=== PATIENT | female | born 1990 | race African-American/Black ===

== ENCOUNTER 2019-08-24 08:35 | Emergency (ER) | payer SELFPAY ==
[~2019-08-24] VITALS: Ht 165.1 cm; Wt 81.8 kg
[~2019-08-24 08:35] MED LIST: ACET325T9 PO; METO5TAB55 PO; POTA20TA4 PO
[2019-08-24] MEDS ORDERED: IV NORMAL SALINE 1000ML BAG 1,000 ML IV ONE (09:00)
[2019-08-24 09:39] LABS: BASO # 0.1 x10^3/uL (0.0-0.2); BASO % 1 % (0-3); EOS # 0.2 x10^3/uL (0.0-0.7); EOS % 4 % (0-3); HEMATOCRIT 41.8 % (36.0-47.0); HEMOGLOBIN 13.8 g/dL (12.0-15.5); LYMPH # 1.9 x10^3/uL (1.0-4.8); LYMPH % 40 % (24-48); MEAN CORPUSCULAR HEMOGLOBIN 25 pg (25-35); MEAN CORPUSCULAR HGB CONC 33 g/dL (31-37); MEAN CORPUSCULAR VOLUME 74 fL (79-100); MONO # 0.6 x10^3/uL (0.0-1.1); MONO % 12 % (0-9); NEUT # 2.1 x10^3/uL (1.8-7.7); NEUT % 44 % (31-73); PLATELET COUNT 198 x10^3/uL (140-400); RED BLOOD COUNT 5.63 x10^6/uL (3.50-5.40); RED CELL DISTRIBUTION WIDTH 17.1 % (11.5-14.5); WHITE BLOOD COUNT 4.8 x10^3/uL (4.0-11.0)
[2019-08-24 10:20] LABS: PREG TEST PT QUAL NEGATIVE (NEG)
[2019-08-24] MEDS ORDERED: IOHEXOL 300 MG/ML 100ML VIAL. IV ONE (10:30)
[2019-08-24 10:32] LABS: CALCIUM 8.2 mg/dL (8.5-10.1); CREATININE 0.6 mg/dL (0.6-1.0); POTASSIUM 3.9 mmol/L (3.5-5.1)
[2019-08-24 10:37] LABS: ALBUMIN 3.8 g/dL (3.4-5.0); ALBUMIN/GLOBULIN RATIO 0.9 (1.0-1.7); TOTAL BILIRUBIN 0.8 mg/dL (0.2-1.0)
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
[2019-08-24 11:30] VITALS: BP 96/68
[2019-08-24 11:32] LABS: BARBITURATES NEG (NEG); BENZODIAZEPINES NEG (NEG); CANNABINOIDS NEG (NEG); COCAINE NEG (NEG); METHADONE NEG (NEG); OPIATES NEG (NEG); PHENCYCLIDINE NEG (NEG)
[2019-08-24 11:36] LABS: AMPHETAMINE/METHAMPHETAMINE NEG (NEG)
[2019-08-24 12:09] LABS: PLT ESTIMATE ADEQUATE (ADEQUATE)
== END 2019-08-24 12:08 | disposition home or self-care (01) ==
LOC: ER 08:35
DX: S19.9XXA Unspecified injury of neck, initial encounter (principal); S09.90XA Unspecified injury of head, initial encounter; R51 Headache; Y08.89XA Assault by other specified means, initial encounter; Y93.89 Activity, other specified; Y92.89 Other specified places as the place of occurrence of the external cause; Y99.8 Other external cause status
CPT/HCPCS: 36415; 70450; 70486; 70498; 80053; 80307; 84703; 85025; 99285; J7030; Q9967

== ENCOUNTER 2020-01-09 16:17 | Emergency (ER) | payer SELFPAY ==
[~2020-01-09] VITALS: Ht 170.2 cm; Wt 72.2 kg
[2020-01-09] MEDS ORDERED: ONDANSETRON PF 4 MG/2 ML VIAL. IVP ONE (17:15)
[2020-01-09] MEDS ORDERED: MORPHINE SULFATE 10 MG/ML VIAL. IV ONE (17:15)
[2020-01-09 17:46] LABS: BILIRUBIN,URINE NEGATIVE (NEG); CLARITY,URINE CLEAR; COLOR,URINE YELLOW; NITRITE,URINE NEGATIVE (NEG); PROTEIN,URINE NEGATIVE (NEG-TRACE)
[2020-01-09 17:46] LABS: BASO # 0.1 x10^3/uL (0.0-0.2); BASO % 2 % (0-3); EOS # 0.1 x10^3/uL (0.0-0.7); EOS % 2 % (0-3); HEMATOCRIT 40.1 % (36.0-47.0); HEMOGLOBIN 12.8 g/dL (12.0-15.5); LYMPH # 1.4 x10^3/uL (1.0-4.8); LYMPH % 37 % (24-48); MEAN CORPUSCULAR HEMOGLOBIN 24 pg (25-35); MEAN CORPUSCULAR HGB CONC 32 g/dL (31-37); MEAN CORPUSCULAR VOLUME 77 fL (79-100); MONO # 0.4 x10^3/uL (0.0-1.1); MONO % 11 % (0-9); NEUT # 1.8 x10^3/uL (1.8-7.7); NEUT % 49 % (31-73); PLATELET COUNT 152 x10^3/uL (140-400); RED BLOOD COUNT 5.24 x10^6/uL (3.50-5.40); RED CELL DISTRIBUTION WIDTH 15.5 % (11.5-14.5); WHITE BLOOD COUNT 3.7 x10^3/uL (4.0-11.0)
[2020-01-09 17:58] LABS: BARBITURATES NEG (NEG); BENZODIAZEPINES NEG (NEG); CANNABINOIDS NEG (NEG); COCAINE NEG (NEG); METHADONE NEG (NEG); OPIATES NEG (NEG); PHENCYCLIDINE NEG (NEG)
[2020-01-09 18:02] LABS: AMPHETAMINE/METHAMPHETAMINE NEG (NEG)
[2020-01-09 18:04] LABS: BACTERIA,URINE FEW /HPF (0-FEW); RBC,URINE 0 /HPF (0-2)
--- NOTE | 2020-01-09 18:19 | RAD ---
Ultrasound of the umbilical region of the abdomen 01/09/2020 CLINICAL HISTORY: Bleeding around umbilicus. TECHNIQUE: A real-time ultrasound examination of the anterior abdominal wall in the region of the umbilicus was performed. Multiple images were obtained. FINDINGS: No solid mass or abnormal fluid collection is seen within the soft tissues surrounding the umbilicus. IMPRESSION: Negative study. Electronically signed by: Jerald Lerner MD (01/09/2020 6:16 PM) [id number]
--- NOTE | 2020-01-09 18:47 | PHYS DOC ---
Past Medical History Past Medical History: Hepatitis, Pancreatitis, Other Additional Past Medical Histor: HEP B Past Surgical History: Other Additional Past Surgical Histo: HAND Smoking Status: Current Some Day Smoker Alcohol Use: Heavy Drug Use: None General Adult EDM: Chief Complaint: ABDOMINAL PAIN HPI: HPI: Patient is a 29 year old female patient who presents to the ED today complaining of bleeding around her umbilicus that she noted this afternoon. Denies any injury. She states she has history of chronic abdominal pain since 2019 but this is nothing to do with the blood coming out of her umbilicus. Denies any fever, coughing, congestion, denies any chance she is . She appears intoxicated. Review of Systems: Review of Systems: Constitutional: Denies fever or chills. [] Eyes: Denies change in visual acuity. [] HENT: Denies nasal congestion or sore throat. [] Respiratory: Denies cough or shortness of breath. [] Cardiovascular: Denies chest pain or edema. [] GI: Reports bleeding from the umbilicus. Denies abdominal pain, nausea, vomiting, bloody stools or diarrhea. [] : Denies dysuria. [] Musculoskeletal: Denies back pain or joint pain. [] Integument: See abdomen Neurologic: Denies headache, focal weakness or sensory changes. [] Psychiatric: Denies depression or anxiety. [] Heart Score: Risk Factors: Risk Factors: DM, Current or recent (<one month) smoker, HTN, HLP, family history of CAD, obesity. Risk Scores: Score 0 - 3: 2.5% MACE over next 6 weeks - Discharge Home Score 4 - 6: 20.3% MACE over next 6 weeks - Admit for Clinical Observation Score 7 - 10: 72.7% MACE over next 6 weeks - Early Invasive Strategies Current Medications: Current Medications Medications (Trade) Dose Ordered Sig/[facility] Start Time Stop Time Status Last Admin Dose Admin Morphine Sulfate (Morphine Sulfate) 5 mg 1X ONCE 01/09/20 17:15 01/09/20 17:16 DC 01/09/20 17:53 5 MG Ondansetron HCl (Zofran) 4 mg 1X ONCE 01/09/20 17:15 01/09/20 17:16 DC 01/09/20 17:52 4 MG Allergies: Allergies: Allergies Coded Allergies Type Severity Reaction Last Updated Verified No Known Drug Allergies 01/12/19 No Physical Exam: PE: Constitutional: Well developed, well nourished, no acute distress, non-toxic appearance. [] HENT: Normocephalic, atraumatic, bilateral external ears normal, oropharynx moist, no oral exudates, nose normal. [] Eyes: PERRLA, EOMI, conjunctiva normal, no discharge. [] Neck: Normal range of motion, no tenderness, supple, no stridor. [] Cardiovascular:Heart rate regular rhythm, no murmur [] Lungs & Thorax: Bilateral breath sounds clear to auscultation [] Abdomen: Rounded abdomen, umbilicus was retracted, there is a superficial pimple size lesion that has opened up and is draining. Bowel sounds normal, soft, no tenderness, no masses, no pulsatile masses. [] Skin: Warm, dry, no erythema, no rash. [] Back: No tenderness, no CVA tenderness. [] Extremities: No tenderness, no cyanosis, no clubbing, ROM intact, no edema. [] Neurologic: Alert and oriented X 3, normal motor function, normal sensory function, no focal deficits noted. [] Psychologic: Affect normal, judgement normal, mood normal. [] Current Patient Data: Labs: Laboratory Tests Test 01/09/20 16:43 01/09/20 17:02 01/09/20 17:30 Urine Collection Type Unknown Urine Color Yellow Urine Clarity Clear Urine pH 6.0 (<5.0-8.0) Urine Specific [place] <=1.005 (1.000-1.030) Urine Protein Negative mg/dL (NEG-TRACE) Urine Glucose (UA) Negative mg/dL (NEG) Urine Ketones (Stick) Negative mg/dL (NEG) Urine Blood Negative (NEG) Urine Nitrite Negative (NEG) Urine Bilirubin Negative (NEG) Urine Urobilinogen Dipstick 1.0 mg/dL (0.2 mg/dL) Urine Leukocyte Esterase Negative (NEG) Urine RBC 0 /HPF (0-2) Urine WBC 5-10 /HPF (0-4) Urine Squamous Epithelial Cells Mod /LPF Urine Bacteria Few /HPF (0-FEW) Urine Opiates Screen Neg (NEG) Urine Methadone Screen Neg (NEG) Urine Barbiturates Neg (NEG) Urine Phencyclidine Screen Neg (NEG) Urine Amphetamine/Methamphetamine Neg (NEG) Urine Benzodiazepines Screen Neg (NEG) Urine Cocaine Screen Neg (NEG) Urine Cannabinoids Screen Neg (NEG) Urine Ethyl Alcohol Pos (NEG) POC Urine HCG, Qualitative Hcg negative (Negative) White Blood Count 3.7 x10^3/uL (4.0-11.0) L Red Blood Count 5.24 x10^6/uL (3.50-5.40) Hemoglobin 12.8 g/dL (12.0-15.5) Hematocrit 40.1 % (36.0-47.0) Mean Corpuscular Volume 77 fL (79-100) L Mean Corpuscular Hemoglobin 24 pg (25-35) L Mean Corpuscular Hemoglobin Concent 32 g/dL (31-37) Red Cell Distribution Width 15.5 % (11.5-14.5) H Platelet Count 152 x10^3/uL (140-400) Neutrophils (%) (Auto) 49 % (31-73) Lymphocytes (%) (Auto) 37 % (24-48) Monocytes (%) (Auto) 11 % (0-9) H Eosinophils (%) (Auto) 2 % (0-3) Basophils (%) (Auto) 2 % (0-3) Neutrophils # (Auto) 1.8 x10^3/uL (1.8-7.7) Lymphocytes # (Auto) 1.4 x10^3/uL (1.0-4.8) Monocytes # (Auto) 0.4 x10^3/uL (0.0-1.1) Eosinophils # (Auto) 0.1 x10^3/uL (0.0-0.7) Basophils # (Auto) 0.1 x10^3/uL (0.0-0.2) Laboratory Tests 01/09/20 17:30 Vital Signs: Vital Signs Date Time Temp Pulse Resp B/P (MAP) Pulse Ox O2 Delivery O2 Flow Rate FiO2 01/09/20 16:34 98.6 104 16 142/93 (109) 98 Room Air 98.6 EKG: EKG: [] Radiology/Procedures: Radiology/Procedures: []PROCEDURE: ABDOMEN LTD Ultrasound of the umbilical region of the abdomen 01/09/2020 CLINICAL HISTORY: Bleeding around umbilicus. TECHNIQUE: A real-time ultrasound examination of the anterior abdominal wall in the region of the umbilicus was performed. Multiple images were obtained. FINDINGS: No solid mass or abnormal fluid collection is seen within the soft tissues surrounding the umbilicus. IMPRESSION: Negative study. Electronically signed by: Jerald Horne MD (01/09/2020 6:16 PM) [id number] DICTATED and SIGNED BY: JERALD HORNE MD DATE: 01/09/201815 Course & Med Decision Making: Course & Med Decision Making Pertinent Labs and Imaging studies reviewed. (See chart for details) This is a 29-year-old female patient presented to the ED today with complaints of bleeding from the umbilicus. Umbilicus was evaluated, there is a small lesion that appears to have opened up and bled. Tetanus is up-to-date. Ultrasound of the region was done which was negative for any acute findings. CBC with a WBC of 3.7, patient does not know her baseline, CMP with AST of 186, ALT of 113, patient reports history of chronic gallstones. Lipase is normal. Discharged with mupirocin cream to apply to this region in the umbilicus that was bleeding. Instructed to keep the area clean and dry. Her alcohol level was 352, patient is alcoholic. Lipase is normal. Encouraged to consider getting help for alcoholism. Dragon Disclaimer: Dragon Disclaimer: This electronic medical record was generated, in whole or in part, using a voice recognition dictation system. Departure Departure Impression: Primary Impression: Skin infection Additional Impression: Alcoholism Disposition: 01 DC HOME SELF CARE/HOMELESS Condition: STABLE Referrals: NO PCP (PCP) follow up with your doctor in 1-2 weeks Patient Instructions: Alcohol Problems, Skin Infections Additional Instructions: You were evaluated in the emergency room for a lesion on your abdomen that was bleeding. Use the prescribed cream to the area twice a day. Keep the area clean and dry. Follow-up with your doctor in 1 to 2 weeks, consider getting help for alcohol use Scripts Mupirocin (MUPIROCIN OINTMENT) 22 Gm Oint...g. 1 REUBEN TP BID for WOUND CARE, #1 TUBE Prov: JOAN ANGELES APRN 01/09/20 JOAN ANGELES APRN Jan 09, 2020 18:47
[2020-01-09 18:51] LABS: CALCIUM 8.4 mg/dL (8.5-10.1); CREATININE 0.5 mg/dL (0.6-1.0); GFR 177.8; POTASSIUM 3.6 mmol/L (3.5-5.1)
[2020-01-09 18:57] LABS: ALBUMIN 3.6 g/dL (3.4-5.0); TOTAL BILIRUBIN 0.7 mg/dL (0.2-1.0); TOTAL PROTEIN 7.2 g/dL (6.4-8.2)
[2020-01-09 19:00] VITALS: BP 115/59
[2020-01-09] MEDS ORDERED: MUPI22OI2 TP (19:12)
== END 2020-01-09 19:35 | disposition home or self-care (01) ==
LOC: ER 16:17
DX: L08.89 Other specified local infections of the skin and subcutaneous tissue (principal); G89.29 Other chronic pain; R10.33 Periumbilical pain; F10.20 Alcohol dependence, uncomplicated; Y90.8 Blood alcohol level of 240 mg/100 ml or more; F17.200 Nicotine dependence, unspecified, uncomplicated
CPT/HCPCS: 36415; 76705; 80053; 80307; 81001; 81025; 83690; 85025; 96374; 96375; 99285; G0480; J2270; J2405

== ENCOUNTER 2020-11-06 06:00 | Inpatient (IN) | payer SELFPAY ==
[~2020-11-06] VITALS: Ht 170.2 cm; Wt 62.4 kg
[~2020-11-06 06:00] MED LIST changes: +MUPI22OI2 TP
--- NOTE | 2020-11-06 06:38 | PHYS DOC ---
Past Medical History Past Medical History: Hepatitis, Pancreatitis, Other Additional Past Medical Histor: HEP B, pancreatitis, alcoholism Past Surgical History: Other Additional Past Surgical Histo: HAND Smoking Status: Current Some Day Smoker Alcohol Use: Heavy Drug Use: None General Adult EDM: Chief Complaint: ABDOMINAL PAIN HPI: HPI: Patient is a 30 year old female with history of hepatitis B, pancreatitis, per chart review history of alcoholism who presents with 5 days of abdominal pain, N/V, and dysuria. States that she has been vomiting very frequently and has very poor appetite. Abdominal pain is mostly upper abdominal and epigastric area. Radiates to the flanks and towards the back. Made worse by food or by movement. Also reports dysuria, frequency, but no urgency. Last BM yesterday. States it was loose and yellow. Denies fever/chills. states she drinks regularly, but is not sure how much. she estimates 3x per week. She does not provide an estimate of how many drinks per occasion upon repeated questioning, but indicates it is less than 6. Review of Systems: Review of Systems: Constitutional: Denies fever or chills. [] Eyes: Denies change in visual acuity. [] HENT: Denies nasal congestion or sore throat. [] Respiratory: Denies cough or shortness of breath. [] Cardiovascular: Denies chest pain or edema. [] GI: Reports abdominal pain, nausea, vomiting. Denies bloody stools or diarrhea. [] : Reports dysuria and frequency. Denies urgency. [] Musculoskeletal: reports back pain. No joint pain. [] Integument: Denies rash. [] Neurologic: Denies headache, focal weakness or sensory changes. [] Endocrine: Denies polyuria or polydipsia. [] Lymphatic: Denies swollen glands. [] Psychiatric: Denies depression or anxiety. [] Heart Score: C/O Chest Pain: No Risk Factors: Risk Factors: DM, Current or recent (<one month) smoker, HTN, HLP, family history of CAD, obesity. Risk Scores: Score 0 - 3: 2.5% MACE over next 6 weeks - Discharge Home Score 4 - 6: 20.3% MACE over next 6 weeks - Admit for Clinical Observation Score 7 - 10: 72.7% MACE over next 6 weeks - Early Invasive Strategies Allergies: Allergies: Allergies Coded Allergies Type Severity Reaction Last Updated Verified No Known Drug Allergies 11/16/19 No Physical Exam: PE: Constitutional: Well developed, well nourished, no acute distress, non-toxic appearance. [] HENT: Normocephalic, atraumatic, bilateral external ears normal, oropharynx moist, no oral exudates, nose normal. [] Eyes: PERRLA, EOMI, conjunctiva normal, no discharge. [] Neck: Normal range of motion, no tenderness, supple, no stridor. [] Cardiovascular:Heart rate regular rhythm, no murmur [] Lungs & Thorax: Bilateral breath sounds clear to auscultation [] Abdomen: soft, diffuse moderate abdominal pain, some guarding. Skin: Warm, dry, no erythema, no rash. [] Back: No tenderness, no CVA tenderness. [] Extremities: No tenderness, no cyanosis, no clubbing, ROM intact, no edema. [] Neurologic: Alert and oriented X 3, normal motor function, normal sensory function, no focal deficits noted. [] Psychologic: Affect normal, judgement normal, mood normal. [] EKG: EKG: [] Radiology/Procedures: Radiology/Procedures: [] Course & Med Decision Making: Course & Med Decision Making Pertinent Labs and Imaging studies reviewed. (See chart for details) Patient is a 30-year-old female with history of alcoholism, hepatitis B, pancreatitis who presents with 5 days of upper abdominal pain that radiates towards her back as well as dysuria and frequency. On arrival is afebrile, hemodynamically stable. No distress on examination. Does have diffuse moderate abdominal tenderness. We will initiate work-up with CBC, CMP, lipase, UA, urine test. DDx includes pancreatitis, UTI/pyelonephritis, hepatitis. Also considered surgical processes such as pancreatic abscess, necrotizing pancreatitis, cholecystitis, but feelt these are less likely given appearance, history, and vitals. Will defer decision on imaging to laboratory work up. [id number] With elevated lipase, characteristic pain, and history of alcoholism feel pancreatitis is most likely diagnosis. We will continue to defer imaging. Potassium 2.4. We will continue on vehicle monitor technician and replete with IV and p.o. KCl. Magnesium WNL. We will plan on admission for pain control and potassium repletion. [id number] Indu Disclaimer: Indu Disclaimer: This electronic medical record was generated, in whole or in part, using a voice recognition dictation system. Departure Departure Impression: Primary Impression: Pancreatitis Additional Impressions: Hypokalemia Alcohol abuse Disposition: ADMITTED INPATIENT Admitting Physician: KATERINA Shook) Condition: STABLE Referrals: NO PCP (PCP) NANNETTE LEWIS MD Nov 06, 2020 06:37
[2020-11-06] MEDS ORDERED: ONDANSETRON PF 4 MG/2 ML VIAL. IVP ONE (07:00)
[2020-11-06] MEDS ORDERED: IV RINGERS,LACTATED 500ML 1,000 ML IV ONE (07:00)
[2020-11-06] MEDS ORDERED: MORPHINE SULFATE 4 MG/ML INJ. IVP ONE (07:00)
[2020-11-06 07:12] LABS: U PREG PATIENT NEGATIVE (NEG)
[2020-11-06 07:14] LABS: BILIRUBIN,URINE SMALL (NEG); CLARITY,URINE CLEAR; COLOR,URINE ORANGE; NITRITE,URINE NEGATIVE (NEG); PROTEIN,URINE 100 mg/dL (NEG-TRACE)
[2020-11-06 07:37] LABS: BACTERIA,URINE FEW /HPF (0-FEW); RBC,URINE OCC /HPF (0-2)
[2020-11-06 07:58] LABS: BASO % 1 % (0-3); EOS % 0 % (0-3); HEMATOCRIT 39.3 % (36.0-47.0); LYMPH # 1.1 x10^3/uL (1.0-4.8); LYMPH % 17 % (24-48); MEAN CORPUSCULAR HEMOGLOBIN 26 pg (25-35); MEAN CORPUSCULAR HGB CONC 33 g/dL (31-37); MEAN CORPUSCULAR VOLUME 80 fL (79-100); MONO % 16 % (0-9); NEUT # 4.4 x10^3/uL (1.8-7.7); NEUT % 67 % (31-73); PLATELET COUNT 143 x10^3/uL (140-400); RED BLOOD COUNT 4.92 x10^6/uL (3.50-5.40); RED CELL DISTRIBUTION WIDTH 15.6 % (11.5-14.5); WHITE BLOOD COUNT 6.7 x10^3/uL (4.0-11.0)
[2020-11-06 08:09] LABS: ALBUMIN 3.8 g/dL (3.4-5.0); ALBUMIN/GLOBULIN RATIO 0.9 (1.0-1.7); CALCIUM 8.7 mg/dL (8.5-10.1); CREATININE 0.5 mg/dL (0.6-1.0); GFR 176.5; TOTAL BILIRUBIN 1.7 mg/dL (0.2-1.0); TOTAL PROTEIN 7.9 g/dL (6.4-8.2)
[2020-11-06 08:13] LABS: POTASSIUM 2.4 mmol/L (3.5-5.1)
[2020-11-06] MEDS ORDERED: POTASSIUM CHLORIDE 20 MEQ TABLET.ER. PO ONE (08:15)
[2020-11-06] MEDS ORDERED: POTASSIUM CHLORIDE 20MEQ 100 ML IV ONE (08:30)
[2020-11-06] MEDS ORDERED: IV RINGERS,LACTATED 1000ML 1,000 ML IV ONE (08:30)
[2020-11-06 10:21] VITALS: BP 118/59
[2020-11-06] MEDS ORDERED: DIPH25CA58 PO (10:56)
[2020-11-06] MEDS: MORPHINE SULFATE 2 MG/ML INJ. IV PRN ×4 (12:28→23:13)
[2020-11-06] MEDS ORDERED: PIP/TAZO PER PHARMACY MC PRN (14:00)
--- NOTE | 2020-11-06 14:39 | PDOC2 ---
GI CONSULT Date of Service: DATE: 11/06/20 TIME: 14:26 Reason For Consult: pancreatitis HPI: HPI: 30 y/o female admitted through ER. Upper abdominal pain, early satiety, vomiting, sometimes pain felt in back since Monday. Says precipitated by drinking alcohol because she was depressed that her neighbor poisoned her dog and the dog . Has tray of clears in room. H/o heartburn - takes one of her friend's pills sometimes. No dysphagia, hematemesis, diarrhea, constipation, hematochezia, melena, or weight loss. No previous EGD or colonoscopy. H/o pancreatitis in the past attributed to alcohol. GB sludge, hepatic steatosis on past US. She thinks once she was told she had gallstones. Suspected chronic HBV carrier from past encounter. Encouraged yearly US and AFP then. No PUD history. Didn't get COVID vaccine - didn't know where to go, thought she couldn't afford it. PMH: PMH: pancreatitis, alcohol overuse, Hep B right hand surgery FH: Family History: No pertinent hx Social History: Smoke: <1 pack per day ALCOHOL: heavy Drugs: None ROS: GEN: Denies fevers, chills, sweats HEENT: Denies blurred vision, sore throat CV: Denies chest pain RESP: Denies shortness of air, cough GI: Per HPI : +dysuria ENDO: Denies weight changes NEURO: Denies confusion, dizziness MSK: Denies weakness, joint pain/swelling SKIN: Denies jaundice, pruritus Vitals: Vitals: Vital Signs Date Time Temp Pulse Resp B/P (MAP) Pulse Ox O2 Delivery O2 Flow Rate FiO2 11/06/20 12:28 Room Air 11/06/20 10:21 98.2 54 18 118/59 (78) 91 98.2 Labs: Labs: Laboratory Tests Test 11/06/20 06:08 11/06/20 07:44 Urine Collection Type Void Urine Color Corbett Urine Clarity Clear Urine pH 6.0 (<5.0-8.0) Urine Specific [place] 1.020 (1.000-1.030) Urine Protein 100 mg/dL (NEG-TRACE) Urine Glucose (UA) Negative mg/dL (NEG) Urine Ketones (Stick) Trace mg/dL (NEG) Urine Blood Negative (NEG) Urine Nitrite Negative (NEG) Urine Bilirubin Small (NEG) Urine Urobilinogen Dipstick 2.0 mg/dL (0.2 mg/dL) Urine Leukocyte Esterase Small (NEG) Urine RBC Occ /HPF (0-2) Urine WBC 5-10 /HPF (0-4) Urine Squamous Epithelial Cells Mod /LPF Urine Bacteria Few /HPF (0-FEW) Urine Mucus Mod /LPF Urine Test Negative (NEG) White Blood Count 6.7 x10^3/uL (4.0-11.0) Red Blood Count 4.92 x10^6/uL (3.50-5.40) Hemoglobin 13.0 g/dL (12.0-15.5) Hematocrit 39.3 % (36.0-47.0) Mean Corpuscular Volume 80 fL (79-100) Mean Corpuscular Hemoglobin 26 pg (25-35) Mean Corpuscular Hemoglobin Concent 33 g/dL (31-37) Red Cell Distribution Width 15.6 % (11.5-14.5) Platelet Count 143 x10^3/uL (140-400) Neutrophils (%) (Auto) 67 % (31-73) Lymphocytes (%) (Auto) 17 % (24-48) Monocytes (%) (Auto) 16 % (0-9) Eosinophils (%) (Auto) 0 % (0-3) Basophils (%) (Auto) 1 % (0-3) Neutrophils # (Auto) 4.4 x10^3/uL (1.8-7.7) Lymphocytes # (Auto) 1.1 x10^3/uL (1.0-4.8) Monocytes # (Auto) 1.0 x10^3/uL (0.0-1.1) Eosinophils # (Auto) 0.0 x10^3/uL (0.0-0.7) Basophils # (Auto) 0.0 x10^3/uL (0.0-0.2) Sodium Level 134 mmol/L (136-145) Potassium Level 2.4 mmol/L (3.5-5.1) Chloride Level 95 mmol/L (98-107) Carbon Dioxide Level 25 mmol/L (21-32) Anion Gap 14 (6-14) Blood Urea Nitrogen 1 mg/dL (7-20) Creatinine 0.5 mg/dL (0.6-1.0) Estimated GFR (Cockcroft-Gault) 176.5 BUN/Creatinine Ratio 2 (6-20) Glucose Level 114 mg/dL (70-99) Calcium Level 8.7 mg/dL (8.5-10.1) Magnesium Level 2.1 mg/dL (1.8-2.4) Total Bilirubin 1.7 mg/dL (0.2-1.0) Aspartate Amino Transf (AST/SGOT) 95 U/L (15-37) Alanine Aminotransferase (ALT/SGPT) 69 U/L (14-59) Alkaline Phosphatase 73 U/L (46-116) Total Protein 7.9 g/dL (6.4-8.2) Albumin 3.8 g/dL (3.4-5.0) Albumin/Globulin Ratio 0.9 (1.0-1.7) Lipase 2184 U/L (73-393) Allergies: Coded Allergies: No Known Drug Allergies (Unverified , 01/12/19) Medications: Current Medications Medications (Trade) Dose Ordered Sig/Mahamed Route PRN Reason Start Time Stop Time Status Last Admin Dose Admin Morphine Sulfate (Morphine Sulfate) 4 mg 1X ONCE IVP 11/06/20 07:00 11/06/20 07:01 DC 11/06/20 07:17 Ondansetron HCl (Zofran) 4 mg 1X ONCE IVP 11/06/20 07:00 11/06/20 07:01 DC 11/06/20 07:17 Ringer's Solution 1,000 ml @ 1,000 mls/hr 1X ONCE IV 11/06/20 07:00 11/06/20 07:59 DC 11/06/20 07:00 Potassium Chloride/Water 100 ml @ 50 mls/hr 1X ONCE IV 11/06/20 08:30 11/06/20 10:29 DC 11/06/20 08:38 Potassium Chloride (Klor-Con) 40 meq 1X ONCE PO 11/06/20 08:15 11/06/20 08:21 DC 11/06/20 08:24 Ringer's Solution 1,000 ml @ 75 mls/hr 1X ONCE IV 11/06/20 08:30 11/06/20 21:49 11/06/20 08:37 Morphine Sulfate (Morphine Sulfate) 2 mg PRN Q2HR PRN IV MODERATE TO SEVERE PAIN 11/06/20 12:15 11/06/20 12:28 Imaging: Imaging: none PE: GEN: NAD HEENT: Atraumatic, PERRL LUNGS: CTAB HEART: RRR ABD: quiet, soft, non-distended, mildly tender epigastrium/LUQ EXTREMITY: No edema SKIN: No rashes, no jaundice NEURO/PSYCH: A & O 3 A/P: A/P: Pancreatitis - recurrent Hypokalemia, abnormal LFTs Heartburn CRC screen - average risk GB sludge, hepatic steatosis Suspect chronic HBV carrier Alcohol overuse Depression - defer to primary -- Checking CT A/P. Already trying clears - observe on this. IV PPI, follow labs. Stop alcohol. COVID test pending. Note given IV atbx - defer to primary. RAJINDER MEZA Nov 06, 2020 14:39
[2020-11-06 14:51] VITALS: BP 129/76
--- NOTE | 2020-11-06 15:08 | RAD ---
Examination: CT of the abdomen pelvis without contrast HISTORY: History of elevated lipase COMPARISON: None available TECHNIQUE: Axial CT images of the abdomen pelvis were performed without contrast. Coronal and sagitta l reformats are performed Exposure: One or more of the following individualized dose reduction techniques were utilized for thi s examination: 1. Automated exposure control 2. Adjustment of the mA and/or kV according to patient size 3. Use of iterative reconstruction technique Findings: Minimal bibasilar lung atelectasis. No evidence of free air identified in the abdomen. The evaluation of the solid organs is limited due to lack of IV contrast. The evaluation of bowel is limited due to lack of oral contrast. There is diffuse degree attenuation noted in the liver likely hepatic steatos is. The spleen, adrenals grossly appears unremarkable. The gallbladder is mildly distended. The stoma ch is mildly distended. Moderate to severe inflammatory fat stranding identified surrounding the pancreas. The small bowel is nondilated. Feces and gas noted in the colon Mild thickened appearance of the wall of the descending colon. No evidence of intrarenal collecting s ystem calculus hydronephrosis. Urinary bladder is mildly distended. Mild bilateral L5 spondylolysis. IMPRESSION: 1. Moderate to severe inflammatory fat stranding identified surrounding the pancreas likely acute pa ncreatitis. 2. Hepatic steatosis. 3. Mild thickened appearance of the wall of the descending colon could be due to nondistention or mi ld colitis. Electronically signed by: Paul Manzanares MD (11/06/2020 3:06 PM) [id number]
--- NOTE | 2020-11-06 15:31 | RAD ---
EXAM: XR CHEST 1V 11/06/2020 1:57 PM CLINICAL INDICATION: Hypoxia COMPARISON: None TECHNIQUE: AP upright view of the chest FINDINGS: The heart and mediastinum are normal. Lungs are well-expanded and clear. No consolidatio n, pleural effusion, or pneumothorax. Pulmonary vascularity is normal. No acute osseous abnormality. IMPRESSION: No acute cardiopulmonary abnormality. Electronically signed by: Jenny Jacobs MD (11/06/2020 3:28 PM) [id number]
--- NOTE | 2020-11-06 15:40 | HP ---
ADMIT DATE: 11/06/2020 CHIEF COMPLAINT: Abdominal pain. HISTORY OF PRESENT ILLNESS: The patient is a pleasant 30-year-old female from [place]. She presented to the office with abdominal pain. She states she has been drinking a lot recently because someone poisoned her dog. Normally, she only drinks about 18 drinks a week. While in the ER, we noticed that her lipase is a little high. We suspect she has got pancreatitis. She is concerned she might have a gallstone. We are going to admit the patient and consult GI. PAST MEDICAL HISTORY: Possible alcohol issues, previous pancreatitis, hepatitis B, right hand surgery. ALLERGIES: None. FAMILY HISTORY: Diabetes. SOCIAL HISTORY: She does not drink, smoke or take drugs. MEDICATIONS: Reviewed, please refer to the MRAD. REVIEW OF SYSTEMS: GENERAL: No history of weight change, weakness or fevers. SKIN: No bruising, hair changes or rashes. EYES: No blurred, double or loss of vision. NOSE AND THROAT: No history of nosebleeds, hoarseness or sore throat. HEART: No history of palpitations, chest pain or shortness of breath on exertion. LUNGS: Denies cough, hemoptysis, wheezing or shortness of breath. GASTROINTESTINAL: She complains of abdominal pain. GENITOURINARY: No history of frequency, urgency, hesitancy or nocturia. NEUROLOGIC: Denies history of numbness, tingling, tremor or weakness. PSYCHIATRIC: No history of panic, anxiety or depression. ENDOCRINE: No history of heat or cold intolerance, polyuria or polydipsia. EXTREMITIES: Denies muscle weakness, joint pain, pain on walking or stiffness. . PHYSICAL EXAMINATION: VITALS: Within normal limits and are stable. GENERAL: No apparent distress. Alert and oriented. HEENT: Normal cephalic atraumatic, external auditory canals are patent. EYES: Extraocular muscles are intact, pupils are equally round and reactive to light and accommodation. MUSCULOSKELETAL: Well developed, well nourished, good range of motion. ENDOCRINE: No thyromegaly was palpated. LYMPHATICS: No cervical chain or axillary nodes were noted. HEMATOPOIETIC: No bruising. NECK: Supple, no JVD, no thyromegaly was noted. LUNGS: Clear to auscultation in all lung co[place] without rhonchi or wheezing. HEART: RRR, S1, S2 present. Peripheral pulses intact, no obvious murmurs were noted. ABDOMEN: She has decreased bowel sounds with tenderness in the lower quadrants. EXTREMITIES: Without any cyanosis, clubbing, or edema. Pedal pulses intact, Homans sign is negative. NEUROLOGIC: Normal speech, normal tone. A and O x 3, moves all extremities, no obvious focal deficits. PSYCHIATRIC: Normal affect, normal mood. Stable. SKIN: No ulcerations or rashes, good skin turgor, no jaundice. VASCULAR: Good capillary refill, neurovascular bundle appears to be intact. LABORATORY DATA: Lipase is 2184. Potassium is low at 2.4. Sodium is low at 134. ASSESSMENT AND PLAN: Pancreatitis, hypokalemia, hyponatremia, suspect possible alcohol issues. The patient has been admitted. We will consult GI. Home meds. DVT prophylaxis. Full code. If she starts showing signs of alcohol withdrawal, we will consider alcohol withdrawal protocol. KAREL DR: Jannette TID: [id number]
[2020-11-06] MEDS: PANTOPRAZOLE IV PUSH 40 MG VIAL. IVP SCH (15:54)
[2020-11-06] MEDS: AA 4.25 %/CALCIUM/LYTES/D5W 1,000 ML IV SCH (15:55)
[2020-11-06] MEDS: PIPERACILLIN/TAZOBACTAM 3.375 GM in IV NORMAL SALINE 50ML 50 ML IV SCH ×3 (17:20→23:13)
[2020-11-06 19:00] VITALS: BP 136/79
[2020-11-06] MEDS: ONDANSETRON PF 4 MG/2 ML VIAL. IVP PRN (20:11)
[2020-11-06 23:19] VITALS: BP 145/86
[2020-11-07 03:56] VITALS: BP 140/93
[2020-11-07] MEDS: MORPHINE SULFATE 2 MG/ML INJ. IV PRN ×4 (05:18→20:34)
[2020-11-07] MEDS: ONDANSETRON PF 4 MG/2 ML VIAL. IVP PRN ×2 (05:18→10:55)
[2020-11-07] MEDS: AA 4.25 %/CALCIUM/LYTES/D5W 1,000 ML IV SCH ×2 (05:18→15:27)
[2020-11-07] MEDS: PIPERACILLIN/TAZOBACTAM 3.375 GM in IV NORMAL SALINE 50ML 50 ML IV SCH ×3 (05:19→17:39)
[2020-11-07 07:00] VITALS: BP 147/49
[2020-11-07 07:04] LABS: BASO % 1 % (0-3); EOS # 0.1 x10^3/uL (0.0-0.7); EOS % 1 % (0-3); HEMATOCRIT 37.2 % (36.0-47.0); HEMOGLOBIN 12.2 g/dL (12.0-15.5); LYMPH # 1.2 x10^3/uL (1.0-4.8); LYMPH % 17 % (24-48); MEAN CORPUSCULAR HEMOGLOBIN 26 pg (25-35); MEAN CORPUSCULAR HGB CONC 33 g/dL (31-37); MEAN CORPUSCULAR VOLUME 80 fL (79-100); MONO # 1.7 x10^3/uL (0.0-1.1); MONO % 25 % (0-9); NEUT # 3.8 x10^3/uL (1.8-7.7); NEUT % 57 % (31-73); PLATELET COUNT 151 x10^3/uL (140-400); RED BLOOD COUNT 4.65 x10^6/uL (3.50-5.40); RED CELL DISTRIBUTION WIDTH 15.4 % (11.5-14.5); WHITE BLOOD COUNT 6.8 x10^3/uL (4.0-11.0)
[2020-11-07 07:21] LABS: CALCIUM 8.7 mg/dL (8.5-10.1); CREATININE 0.6 mg/dL (0.6-1.0); POTASSIUM 3.1 mmol/L (3.5-5.1)
[2020-11-07 07:30] LABS: DIRECT BILIRUBIN 0.8 mg/dL (0.0-0.2); TOTAL BILIRUBIN 2.3 mg/dL (0.2-1.0); TOTAL PROTEIN 6.4 g/dL (6.4-8.2)
[2020-11-07 08:08] LABS: % BANDS 1 % (0-9); % LYMPHS 25 % (24-48); % MONOS 30 % (0-10); % SEGS 44 % (35-66); PLT ESTIMATE ADEQUATE (ADEQUATE)
[2020-11-07] MEDS: PANTOPRAZOLE IV PUSH 40 MG VIAL. IVP SCH (09:15)
[2020-11-07 11:00] VITALS: BP 136/95
[2020-11-07 15:00] VITALS: BP 130/90
[2020-11-07 19:00] VITALS: BP 114/96
[2020-11-07 23:00] VITALS: BP 146/86
[2020-11-08] MEDS: PIPERACILLIN/TAZOBACTAM 3.375 GM in IV NORMAL SALINE 50ML 50 ML IV SCH ×2 (00:19→06:19)
[2020-11-08] MEDS: MORPHINE SULFATE 2 MG/ML INJ. IV PRN ×3 (00:41→10:52)
[2020-11-08 03:23] VITALS: BP 134/93
[2020-11-08 07:00] VITALS: BP 128/89
[2020-11-08 07:10] LABS: BASO % 1 % (0-3); EOS # 0.1 x10^3/uL (0.0-0.7); EOS % 2 % (0-3); HEMATOCRIT 36.5 % (36.0-47.0); HEMOGLOBIN 11.8 g/dL (12.0-15.5); LYMPH # 1.3 x10^3/uL (1.0-4.8); LYMPH % 22 % (24-48); MEAN CORPUSCULAR HEMOGLOBIN 26 pg (25-35); MEAN CORPUSCULAR HGB CONC 33 g/dL (31-37); MEAN CORPUSCULAR VOLUME 80 fL (79-100); MONO # 1.4 x10^3/uL (0.0-1.1); MONO % 25 % (0-9); NEUT # 2.9 x10^3/uL (1.8-7.7); NEUT % 51 % (31-73); PLATELET COUNT 177 x10^3/uL (140-400); RED BLOOD COUNT 4.55 x10^6/uL (3.50-5.40); RED CELL DISTRIBUTION WIDTH 14.7 % (11.5-14.5); WHITE BLOOD COUNT 5.7 x10^3/uL (4.0-11.0)
[2020-11-08 07:22] LABS: CALCIUM 8.9 mg/dL (8.5-10.1); CREATININE 0.6 mg/dL (0.6-1.0); POTASSIUM 3.4 mmol/L (3.5-5.1)
[2020-11-08] MEDS: PANTOPRAZOLE IV PUSH 40 MG VIAL. IVP SCH (08:18)
--- NOTE | 2020-11-08 08:23 | PDOC ---
[employer] PROGRESS NOTE Date of Service DOS: DATE: 11/07/20 TIME: 08:21 Late entry for November 07 Chief Complaint Chief Complaint Abdominal pain History of Present Illness History of Present Illness The patient is a pleasant 30-year-old female from [place]. She presented to the office with abdominal pain. She states she has been drinking a lot recently because someone poisoned her dog. Normally, she only drinks about 18 drinks a week. While in the ER, we noticed that her lipase is a little high. We suspect she has got pancreatitis. She is concerned she might have a gallstone. We are going to admit the patient and consult GI. 11/07 Late entry for November 07. Patient evaluated at bedside says abdomen is feeling somewhat better. Tolerating clear liquid diet this morning. GI following. Vitals/I&O Vitals/I&O: Vital Signs Date Time Temp Pulse Resp B/P (MAP) Pulse Ox O2 Delivery O2 Flow Rate FiO2 11/08/20 04:30 19 Room Air 11/08/20 03:23 97.7 75 134/93 (107) 99 97.7 I & O 11/07/20 11/07/20 11/08/20 15:00 23:00 07:00 Intake Total 50 ml Balance 50 ml Physical Exam General: Alert, Oriented X3, Cooperative Heart: Regular rate, Normal S1, Normal S2 Lungs: Clear Abdomen: Other (Epigastric tenderness) Extremities: No edema, Normal pulses Skin: No significant lesion Labs Labs: Laboratory Tests Test 11/08/20 06:05 White Blood Count 5.7 x10^3/uL (4.0-11.0) Red Blood Count 4.55 x10^6/uL (3.50-5.40) Hemoglobin 11.8 g/dL (12.0-15.5) Hematocrit 36.5 % (36.0-47.0) Mean Corpuscular Volume 80 fL (79-100) Mean Corpuscular Hemoglobin 26 pg (25-35) Mean Corpuscular Hemoglobin Concent 33 g/dL (31-37) Red Cell Distribution Width 14.7 % (11.5-14.5) Platelet Count 177 x10^3/uL (140-400) Neutrophils (%) (Auto) 51 % (31-73) Lymphocytes (%) (Auto) 22 % (24-48) Monocytes (%) (Auto) 25 % (0-9) Eosinophils (%) (Auto) 2 % (0-3) Basophils (%) (Auto) 1 % (0-3) Neutrophils # (Auto) 2.9 x10^3/uL (1.8-7.7) Lymphocytes # (Auto) 1.3 x10^3/uL (1.0-4.8) Monocytes # (Auto) 1.4 x10^3/uL (0.0-1.1) Eosinophils # (Auto) 0.1 x10^3/uL (0.0-0.7) Basophils # (Auto) 0.0 x10^3/uL (0.0-0.2) Sodium Level 134 mmol/L (136-145) Potassium Level 3.4 mmol/L (3.5-5.1) Chloride Level 94 mmol/L (98-107) Carbon Dioxide Level 35 mmol/L (21-32) Anion Gap 5 (6-14) Blood Urea Nitrogen 5 mg/dL (7-20) Creatinine 0.6 mg/dL (0.6-1.0) Estimated GFR (Cockcroft-Gault) 143.0 Glucose Level 106 mg/dL (70-99) Calcium Level 8.9 mg/dL (8.5-10.1) Assessment and Plan Assessmemt and Plan Problems Medical Problems: (1) Alcohol abuse Status: Acute (2) Hypokalemia Status: Acute (3) Pancreatitis Status: Acute Pancreatitis, hypokalemia, hyponatremia, suspect possible alcohol issues. The patient has been admitted. We will consult GI. Home meds. DVT prophylaxis. Full code. If she starts showing signs of alcohol withdrawal, we will consider alcohol withdrawal protocol Can consider PAT consult Comment Review of Relevant I have reviewed the following items selina (where applicable) has been applied. Justifications for Admission Other Justification VALENTINO PIERCE MD Nov 08, 2020 08:23
[2020-11-08] MEDS: AA 4.25 %/CALCIUM/LYTES/D5W 1,000 ML IV SCH ×2 (10:52→17:00)
[2020-11-08 11:00] VITALS: BP 121/76
[2020-11-08] MEDS ORDERED: oxyCODONE/APAP 5/325 1 TAB TABLET PO PRN (12:15)
[2020-11-08] MEDS ORDERED: POTASSIUM CHLORIDE 20 MEQ TABLET.ER. PO ONE (13:00)
--- NOTE | 2020-11-08 13:01 | PDOC ---
[employer] [facility] PROGRESS NOTE Date of Service DOS: DATE: 11/08/20 TIME: 13:00 Chief Complaint Chief Complaint Abdominal pain History of Present Illness History of Present Illness The patient is a pleasant 30-year-old female from [place]. She presented to the office with abdominal pain. She states she has been drinking a lot recently because someone poisoned her dog. Normally, she only drinks about 18 drinks a week. While in the ER, we noticed that her lipase is a little high. We suspect she has got pancreatitis. She is concerned she might have a gallstone. We are going to admit the patient and consult GI. 11/07 Late entry for November 07. Patient evaluated at bedside says abdomen is feeling somewhat better. Tolerating clear liquid diet this morning. GI following. 11/08 Patient evaluated at bedside. She was up ambulating in her room eating lunch when evaluated. Diet advanced today. Says she is feeling much better than presentation and still with some mild abdominal pain. Vitals/I&O Vitals/I&O: Vital Signs Date Time Temp Pulse Resp B/P (MAP) Pulse Ox O2 Delivery O2 Flow Rate FiO2 11/08/20 11:00 97.9 77 18 121/76 (91) 99 97.9 11/08/20 08:00 Room Air I & O 11/07/20 11/07/20 11/08/20 15:00 23:00 07:00 Intake Total 50 ml Balance 50 ml Physical Exam General: Alert, Oriented X3, Cooperative Heart: Regular rate, Normal S1, Normal S2 Lungs: Clear Abdomen: Other (Epigastric tenderness) Extremities: No edema, Normal pulses Skin: No significant lesion Labs Labs: Laboratory Tests Test 11/08/20 06:05 White Blood Count 5.7 x10^3/uL (4.0-11.0) Red Blood Count 4.55 x10^6/uL (3.50-5.40) Hemoglobin 11.8 g/dL (12.0-15.5) Hematocrit 36.5 % (36.0-47.0) Mean Corpuscular Volume 80 fL (79-100) Mean Corpuscular Hemoglobin 26 pg (25-35) Mean Corpuscular Hemoglobin Concent 33 g/dL (31-37) Red Cell Distribution Width 14.7 % (11.5-14.5) Platelet Count 177 x10^3/uL (140-400) Neutrophils (%) (Auto) 51 % (31-73) Lymphocytes (%) (Auto) 22 % (24-48) Monocytes (%) (Auto) 25 % (0-9) Eosinophils (%) (Auto) 2 % (0-3) Basophils (%) (Auto) 1 % (0-3) Neutrophils # (Auto) 2.9 x10^3/uL (1.8-7.7) Lymphocytes # (Auto) 1.3 x10^3/uL (1.0-4.8) Monocytes # (Auto) 1.4 x10^3/uL (0.0-1.1) Eosinophils # (Auto) 0.1 x10^3/uL (0.0-0.7) Basophils # (Auto) 0.0 x10^3/uL (0.0-0.2) Sodium Level 134 mmol/L (136-145) Potassium Level 3.4 mmol/L (3.5-5.1) Chloride Level 94 mmol/L (98-107) Carbon Dioxide Level 35 mmol/L (21-32) Anion Gap 5 (6-14) Blood Urea Nitrogen 5 mg/dL (7-20) Creatinine 0.6 mg/dL (0.6-1.0) Estimated GFR (Cockcroft-Gault) 143.0 Glucose Level 106 mg/dL (70-99) Calcium Level 8.9 mg/dL (8.5-10.1) Assessment and Plan Assessmemt and Plan Problems Medical Problems: (1) Alcohol abuse Status: Acute (2) Hypokalemia Status: Acute (3) Pancreatitis Status: Acute Pancreatitis, hypokalemia, hyponatremia, suspect possible alcohol issues. The patient has been admitted. We will consult GI. Home meds. DVT prophylaxis. Full code. If she starts showing signs of alcohol withdrawal, we will consider alcohol withdrawal protocol Can consider PAT consult Possible discharge in the next few days. Comment Review of Relevant I have reviewed the following items selina (where applicable) has been applied. Justifications for Admission Other Justification VALENTINO PIERCE MD Nov 08, 2020 13:01
[2020-11-08 15:00] VITALS: BP 130/66
[2020-11-08 19:00] VITALS: BP 133/91
[2020-11-08 22:42] VITALS: BP 148/97
[2020-11-09 02:45] VITALS: BP 140/94
[2020-11-09 04:39] LABS: BASO # 0.1 x10^3/uL (0.0-0.2); BASO % 1 % (0-3); EOS # 0.1 x10^3/uL (0.0-0.7); EOS % 2 % (0-3); HEMATOCRIT 35.9 % (36.0-47.0); HEMOGLOBIN 11.6 g/dL (12.0-15.5); LYMPH # 1.6 x10^3/uL (1.0-4.8); LYMPH % 28 % (24-48); MEAN CORPUSCULAR HEMOGLOBIN 26 pg (25-35); MEAN CORPUSCULAR HGB CONC 32 g/dL (31-37); MEAN CORPUSCULAR VOLUME 81 fL (79-100); MONO # 1.4 x10^3/uL (0.0-1.1); MONO % 24 % (0-9); NEUT # 2.6 x10^3/uL (1.8-7.7); NEUT % 45 % (31-73); PLATELET COUNT 205 x10^3/uL (140-400); RED BLOOD COUNT 4.45 x10^6/uL (3.50-5.40); RED CELL DISTRIBUTION WIDTH 14.9 % (11.5-14.5); WHITE BLOOD COUNT 5.7 x10^3/uL (4.0-11.0)
[2020-11-09] MEDS: AA 4.25 %/CALCIUM/LYTES/D5W 1,000 ML IV SCH (05:30)
[2020-11-09 05:44] LABS: CALCIUM 8.6 mg/dL (8.5-10.1); CREATININE 0.6 mg/dL (0.6-1.0); POTASSIUM 3.4 mmol/L (3.5-5.1)
[2020-11-09 07:00] VITALS: BP 134/92
[2020-11-09] MEDS ORDERED: PANTOPRAZOLE 40 MG TABLET.DR. PO SCH (07:30)
--- NOTE | 2020-11-09 10:35 | PDOC ---
Date of Service: DATE: 11/09/20 TIME: 10:30 Subjective: Subjective: Denies abd pain, says tolerating regular diet, really wants to go home. Objective: Vital Signs: Vital Signs Date Time Temp Pulse Resp B/P (MAP) Pulse Ox O2 Delivery O2 Flow Rate FiO2 11/09/20 08:00 Room Air 11/09/20 07:00 99.0 72 18 134/92 (106) 99 99.0 Labs: Laboratory Tests Test 11/09/20 04:05 White Blood Count 5.7 x10^3/uL Red Blood Count 4.45 x10^6/uL Hemoglobin 11.6 g/dL Hematocrit 35.9 % Mean Corpuscular Volume 81 fL Mean Corpuscular Hemoglobin 26 pg Mean Corpuscular Hemoglobin Concent 32 g/dL Red Cell Distribution Width 14.9 % Platelet Count 205 x10^3/uL Neutrophils (%) (Auto) 45 % Lymphocytes (%) (Auto) 28 % Monocytes (%) (Auto) 24 % Eosinophils (%) (Auto) 2 % Basophils (%) (Auto) 1 % Neutrophils # (Auto) 2.6 x10^3/uL Lymphocytes # (Auto) 1.6 x10^3/uL Monocytes # (Auto) 1.4 x10^3/uL Eosinophils # (Auto) 0.1 x10^3/uL Basophils # (Auto) 0.1 x10^3/uL Sodium Level 133 mmol/L Potassium Level 3.4 mmol/L Chloride Level 97 mmol/L Carbon Dioxide Level 27 mmol/L Anion Gap 9 Blood Urea Nitrogen 6 mg/dL Creatinine 0.6 mg/dL Estimated GFR (Cockcroft-Gault) 143.0 Glucose Level 128 mg/dL Calcium Level 8.6 mg/dL Imaging: CT A/P 11/06 IMPRESSION: 1. Moderate to severe inflammatory fat stranding identified surrounding the pancreas likely acute pancreatitis. 2. Hepatic steatosis. 3. Mild thickened appearance of the wall of the descending colon could be due to nondistention or mild colitis. PE: GEN: dressed, walking around room LUNGS: room air HEART: RR per chart ABD: non-distended NEURO/PSYCH: A & O 3 A/P: Recurrent pancreatitis likely secondary to alcohol overuse Abnormal LFTs, hepatic steatosis H/o Hep B - HBeAb pending -- Dc per primary. Stop alcohol. Justicifation of Admission Dx: Justifications for Admission: Justification of Admission Dx: No RAJINDER MEZA Nov 09, 2020 10:35
--- NOTE | 2020-11-09 10:58 | PDOC ---
[facility] [facility] PROGRESS NOTE Date of Service DOS: DATE: 11/09/20 TIME: 10:58 Chief Complaint Chief Complaint Abdominal pain Acute pancreatitis - alcohol induced Hyponatremia - nutritional Hypokalemia Abnormal LFTs, hepatic steatosis H/o Hep B - HBeAb positive History of Present Illness History of Present Illness Ms Young is a 30-year-old female from [place]. She presented to the office with abdominal pain. She states she has been drinking a lot recently because someone poisoned her dog. Normally, she only drinks about 18 drinks a week. While in the ER, we noticed that her lipase is a little high. We suspect she has got pancreatitis. She is concerned she might have a gallstone. We are going to admit the patient and consult GI. 11/07: Patient evaluated at bedside says abdomen is feeling somewhat better. Tolerating clear liquid diet this morning. GI following. 11/08: Patient evaluated at bedside. She was up ambulating in her room eating lunch when evaluated. Diet advanced today. Says she is feeling much better than presentation and still with some mild abdominal pain. 11/09/2020: Pain resolved. NA 134, K2.4 with replaced. Eating well ambulating well discussed with GI okay to discharge home self-care to cut back on alcohol Vitals/I&O Vitals/I&O: Vital Signs Date Time Temp Pulse Resp B/P (MAP) Pulse Ox O2 Delivery O2 Flow Rate FiO2 11/09/20 08:00 Room Air 11/09/20 07:00 99.0 72 18 134/92 (106) 99 99.0 I & O 11/08/20 11/08/20 11/09/20 15:00 23:00 07:00 Intake Total 950 ml 480 ml Balance 950 ml 480 ml Physical Exam General: Alert, Oriented X3, Cooperative Heart: Regular rate, Normal S1, Normal S2 Lungs: Clear Abdomen: Other (Epigastric tenderness) Extremities: No edema, Normal pulses Skin: No significant lesion Labs Labs: Laboratory Tests Test 11/09/20 04:05 White Blood Count 5.7 x10^3/uL (4.0-11.0) Red Blood Count 4.45 x10^6/uL (3.50-5.40) Hemoglobin 11.6 g/dL (12.0-15.5) Hematocrit 35.9 % (36.0-47.0) Mean Corpuscular Volume 81 fL (79-100) Mean Corpuscular Hemoglobin 26 pg (25-35) Mean Corpuscular Hemoglobin Concent 32 g/dL (31-37) Red Cell Distribution Width 14.9 % (11.5-14.5) Platelet Count 205 x10^3/uL (140-400) Neutrophils (%) (Auto) 45 % (31-73) Lymphocytes (%) (Auto) 28 % (24-48) Monocytes (%) (Auto) 24 % (0-9) Eosinophils (%) (Auto) 2 % (0-3) Basophils (%) (Auto) 1 % (0-3) Neutrophils # (Auto) 2.6 x10^3/uL (1.8-7.7) Lymphocytes # (Auto) 1.6 x10^3/uL (1.0-4.8) Monocytes # (Auto) 1.4 x10^3/uL (0.0-1.1) Eosinophils # (Auto) 0.1 x10^3/uL (0.0-0.7) Basophils # (Auto) 0.1 x10^3/uL (0.0-0.2) Sodium Level 133 mmol/L (136-145) Potassium Level 3.4 mmol/L (3.5-5.1) Chloride Level 97 mmol/L (98-107) Carbon Dioxide Level 27 mmol/L (21-32) Anion Gap 9 (6-14) Blood Urea Nitrogen 6 mg/dL (7-20) Creatinine 0.6 mg/dL (0.6-1.0) Estimated GFR (Cockcroft-Gault) 143.0 Glucose Level 128 mg/dL (70-99) Calcium Level 8.6 mg/dL (8.5-10.1) Assessment and Plan Assessmemt and Plan Problems Medical Problems: (1) Alcohol abuse Status: Acute (2) Hypokalemia Status: Acute (3) Pancreatitis Status: Acute Comment Review of Relevant I have reviewed the following items selina (where applicable) has been applied. Medications: Current Medications Medications (Trade) Dose Ordered Sig/Mahamed Route PRN Reason Start Time Stop Time Status Last Admin Dose Admin Pantoprazole Sodium (Protonix) 40 mg DAILYAC PO 11/09/20 07:30 11/09/20 08:11 Potassium Chloride (Klor-Con) 40 meq 1X ONCE PO 11/08/20 13:00 11/08/20 13:01 DC 11/08/20 13:31 Justifications for Admission Other Justification VALENTINO WEAVER MD Nov 09, 2020 10:58
[2020-11-09 11:00] VITALS: BP 148/99
[2020-11-09] MEDS ORDERED: POTASSIUM CHLORIDE 20 MEQ TABLET.ER. PO ONE (11:00)
--- NOTE | 2020-11-09 11:01 | NUR ---
SW following. Discussed with RN, pt from home, room air, bland diet. Med Assist following for self pay status. Discharge order for home with self care.
--- NOTE | 2020-11-09 11:38 | NUR ---
Discharge Note: NORBERTO JURADO MELROSE Discharge instructions and discharge home medications reviewed with Patient and a copy given. All questions have been answered and understanding verbalized. The following instructions and handouts were given: f/u with PCP within two weeks Discontinued lines and drains: Peripheral IV intact. Patient discharged to Home or Self Care with Family Member via Ambulated
--- NOTE | 2020-11-09 15:15 | PDOC3 ---
Discharge Summary Visit Information Date of Admission: Nov 06, 2020 Date of Discharge: Nov 09, 2020 Admitting Diagnosis: Acute alcoholic pancreatitis Final Diagnosis Problems Medical Problems: (1) Alcohol abuse Status: Acute (2) Hypokalemia Status: Acute (3) Pancreatitis Status: Acute Brief Hospital Course Allergies Allergies Coded Allergies Type Severity Reaction Last Updated Verified No Known Drug Allergies 01/12/19 No Vital Signs Vital Signs Date Time Temp Pulse Resp B/P (MAP) Pulse Ox O2 Delivery O2 Flow Rate FiO2 11/09/20 11:00 98.3 72 148/99 (115) 100 Room Air 98.3 11/09/20 07:00 18 Lab Results Laboratory Tests Test 11/08/20 06:05 11/09/20 04:05 White Blood Count 5.7 x10^3/uL (4.0-11.0) 5.7 x10^3/uL (4.0-11.0) Red Blood Count 4.55 x10^6/uL (3.50-5.40) 4.45 x10^6/uL (3.50-5.40) Hemoglobin 11.8 g/dL (12.0-15.5) 11.6 g/dL (12.0-15.5) Hematocrit 36.5 % (36.0-47.0) 35.9 % (36.0-47.0) Mean Corpuscular Volume 80 fL (79-100) 81 fL (79-100) Mean Corpuscular Hemoglobin 26 pg (25-35) 26 pg (25-35) Mean Corpuscular Hemoglobin Concent 33 g/dL (31-37) 32 g/dL (31-37) Red Cell Distribution Width 14.7 % (11.5-14.5) 14.9 % (11.5-14.5) Platelet Count 177 x10^3/uL (140-400) 205 x10^3/uL (140-400) Neutrophils (%) (Auto) 51 % (31-73) 45 % (31-73) Lymphocytes (%) (Auto) 22 % (24-48) 28 % (24-48) Monocytes (%) (Auto) 25 % (0-9) 24 % (0-9) Eosinophils (%) (Auto) 2 % (0-3) 2 % (0-3) Basophils (%) (Auto) 1 % (0-3) 1 % (0-3) Neutrophils # (Auto) 2.9 x10^3/uL (1.8-7.7) 2.6 x10^3/uL (1.8-7.7) Lymphocytes # (Auto) 1.3 x10^3/uL (1.0-4.8) 1.6 x10^3/uL (1.0-4.8) Monocytes # (Auto) 1.4 x10^3/uL (0.0-1.1) 1.4 x10^3/uL (0.0-1.1) Eosinophils # (Auto) 0.1 x10^3/uL (0.0-0.7) 0.1 x10^3/uL (0.0-0.7) Basophils # (Auto) 0.0 x10^3/uL (0.0-0.2) 0.1 x10^3/uL (0.0-0.2) Sodium Level 134 mmol/L (136-145) 133 mmol/L (136-145) Potassium Level 3.4 mmol/L (3.5-5.1) 3.4 mmol/L (3.5-5.1) Chloride Level 94 mmol/L (98-107) 97 mmol/L (98-107) Carbon Dioxide Level 35 mmol/L (21-32) 27 mmol/L (21-32) Anion Gap 5 (6-14) 9 (6-14) Blood Urea Nitrogen 5 mg/dL (7-20) 6 mg/dL (7-20) Creatinine 0.6 mg/dL (0.6-1.0) 0.6 mg/dL (0.6-1.0) Estimated GFR (Cockcroft-Gault) 143.0 143.0 Glucose Level 106 mg/dL (70-99) 128 mg/dL (70-99) Calcium Level 8.9 mg/dL (8.5-10.1) 8.6 mg/dL (8.5-10.1) Laboratory Tests Test 11/09/20 04:05 White Blood Count 5.7 x10^3/uL (4.0-11.0) Red Blood Count 4.45 x10^6/uL (3.50-5.40) Hemoglobin 11.6 g/dL (12.0-15.5) Hematocrit 35.9 % (36.0-47.0) Mean Corpuscular Volume 81 fL (79-100) Mean Corpuscular Hemoglobin 26 pg (25-35) Mean Corpuscular Hemoglobin Concent 32 g/dL (31-37) Red Cell Distribution Width 14.9 % (11.5-14.5) Platelet Count 205 x10^3/uL (140-400) Neutrophils (%) (Auto) 45 % (31-73) Lymphocytes (%) (Auto) 28 % (24-48) Monocytes (%) (Auto) 24 % (0-9) Eosinophils (%) (Auto) 2 % (0-3) Basophils (%) (Auto) 1 % (0-3) Neutrophils # (Auto) 2.6 x10^3/uL (1.8-7.7) Lymphocytes # (Auto) 1.6 x10^3/uL (1.0-4.8) Monocytes # (Auto) 1.4 x10^3/uL (0.0-1.1) Eosinophils # (Auto) 0.1 x10^3/uL (0.0-0.7) Basophils # (Auto) 0.1 x10^3/uL (0.0-0.2) Sodium Level 133 mmol/L (136-145) Potassium Level 3.4 mmol/L (3.5-5.1) Chloride Level 97 mmol/L (98-107) Carbon Dioxide Level 27 mmol/L (21-32) Anion Gap 9 (6-14) Blood Urea Nitrogen 6 mg/dL (7-20) Creatinine 0.6 mg/dL (0.6-1.0) Estimated GFR (Cockcroft-Gault) 143.0 Glucose Level 128 mg/dL (70-99) Calcium Level 8.6 mg/dL (8.5-10.1) Brief Hospital Course Ms Young is a 30-year-old female from [place]. She presented to the office with abdominal pain. She states she has been drinking a lot recently because someone poisoned her dog. Normally, she only drinks about 18 drinks a week. While in the ER, we noticed that her lipase is a little high. We suspect she has got pancreatitis. She is concerned she might have a gallstone. We are going to admit the patient and consult GI. 11/07: Patient evaluated at bedside says abdomen is feeling somewhat better. Tolerating clear liquid diet this morning. GI following. 11/08: Patient evaluated at bedside. She was up ambulating in her room eating lunch when evaluated. Diet advanced today. Says she is feeling much better than presentation and still with some mild abdominal pain. 11/09/2020: Pain resolved. NA 134, K2.4 with replaced. Eating well ambulating well discussed with GI okay to discharge home self-care to cut back on alcohol Consults: GI Abdominal pain Acute pancreatitis - alcohol induced Hyponatremia - nutritional Hypokalemia Abnormal LFTs, hepatic steatosis H/o Hep B - HBeAb positive, concerning for high infectivity greater than 30 minutes spent on d/c Discharge Information Condition at Discharge: Improved Follow Up: Weeks Disposition/Orders: D/C to Home Scheduled PRN Diphenhydramine Hcl (Benadryl) 25 Mg Capsule, 25 MG PO PRN DAILY PRN for ALLERGIES, (Reported) Entered as Reported by: WOLFGANG NARANJO RN on 11/06/20 105 Last Taken: Unknown Dose on Unknown Date & Time Last Action: New Order on 11/06/20 105 by WOLFGANG NARANJO RN Justicifation of Admission Dx: Justifications for Admission: Justification of Admission Dx: VALENTINO Schulte MD Nov 09, 2020 15:15
== END 2020-11-09 11:40 | disposition home or self-care (01) | DRG 439 ==
LOC: ER 06:00 → 5 NORTH 08:48
PROVIDERS: ADMIT Internal Medicine; ATTEND Internal Medicine
DX: K85.20 Alcohol induced acute pancreatitis without necrosis or infection (principal); E87.1 Hypo-osmolality and hyponatremia; E87.6 Hypokalemia; F10.10 Alcohol abuse, uncomplicated; F17.210 Nicotine dependence, cigarettes, uncomplicated; K76.0 Fatty (change of) liver, not elsewhere classified; Y90.9 Presence of alcohol in blood, level not specified; R94.5 Abnormal results of liver function studies; Z83.3 Family history of diabetes mellitus
CPT/HCPCS: 36415; 71045; 74176; 80048; 80053; 80076; 81001; 81025; 83690; 83735; 85007; 85025; 86707; 96361; 96365; 96375; C9113; J1956; J2270; J2405; J2543; J3480; J3490; J7120; 99285-25; G0378